=== PATIENT | female | born 1950 ===

== ENCOUNTER 2018-02-13 09:27 | Emergency (ER) | payer OTHER ==
[2018-02-13 09:40] VITALS: BP 140/83
--- NOTE | 2018-02-13 09:58 | UC ---
Back Pain HPI - HPI Summary HPI Summary: 67 yo female presents with 2 weeks of hot/cold chills and feelings of increased shortness of breath intermittently. She tells me that she has a hx of thyroid issues and wonders if this is "acting up". This was last checked in Oct 2017 and was "fine" per pt. She is visiting from [place] and did fly from [place] to [place] on 01/28 and her symptoms started after arriving. She says that in [place] she was sometimes short of breath, but here it seems more noticeable - she attributes this to staying in a 4 story house that she is not used to. She says that she has a history of asthma, but has not been coughing lately. Mentions some mild intermittent left calf cramping and aches that began after her travel. She denies sinus symptoms, sore throat, cough, chest pain, abdominal pain, n/v/d /c, or dysuria. - History of Current Complaint Chief Complaint: UCBackPain Stated Complaint: BACK PAIN,DIARRHEA Time Seen by Provider: 02/13/18 09:58 Hx Obtained From: Patient Timing: Intermittent Severity Initially: Mild Severity Currently: Mild Pain Intensity: 2 Pain Scale Used: 0-10 Numeric - Allergies/Home Medications Allergies/Adverse Reactions: Allergies Allergy/AdvReac Type Severity Reaction Status Date / Time erythromycin base Allergy Nausea Verified 02/13/18 09:41 Home Medications: Home Medications Levothyroxine TAB* [Synthroid 100 MCG TAB*] 100 mg PO DAILY 02/13/18 [History Confirmed 02/13/18] Simvastatin 20 mg PO DAILY 02/13/18 [History Confirmed 02/13/18] amLODIPine TAB* [Norvasc 5 mg TAB*] 5 mg PO DAILY 02/13/18 [History Confirmed ] PMH/Surg Hx/FS Hx/Imm Hx Endocrine History: Hypothyroidism, Dyslipidemia Cardiovascular History: Hypertension - Surgical History Surgical History: Yes Surgery Procedure, Year, and Place: bladder sling,herniated disc ,ovary x 1 - Family History Known Family History: Positive: None - Social History Lives: With Family Alcohol Use: Occasionally Substance Use Type: None Smoking Status (MU): Never Smoked Tobacco Review of Systems All Other Systems Reviewed And Are Negative: Yes Constitutional: Positive: Other - feeling warm/cold Skin: Positive: Negative Eyes: Positive: Negative ENT: Positive: Negative Respiratory: Positive: Shortness Of Breath Cardiovascular: Positive: Negative Gastrointestinal: Positive: Negative Genitourinary: Positive: Negative Motor: Positive: Negative Neurovascular: Positive: Negative Musculoskeletal: Positive: Other: - left calf cramping Neurological: Positive: Negative Psychological: Positive: Negative Physical Exam - Summary Physical Exam Summary: GENERAL: NAD. WDWN. No pain distress. SKIN: No rashes, sores, lesions, or open wounds. HEENT: Head: AT/NC Eyes: EOM intact. Conjunctiva clear without inflammation or discharge. Ears: Hearing grossly normal. TMs intact, no bulging, erythema, or edema. Nose: Nasal mucosa pink and moist. NTTP maxillary and frontal sinus. Throat: Posterior oropharynx without exudates, erythema, or tonsillar enlargement. Uvula midline. NECK: Supple. Nontender. No lymphadenopathy. CHEST: CTAB. No r/r/w. No accessory muscle use. Breathing comfortably and in no distress. CV: RRR. Without m/r/g. Pulses intact. Cap refill <2seconds. TP and DP 2+ b/l. ABDOMEN: Soft. NTTP. No distention or guarding. No CVA tenderness. Bowel sounds present MSK: Left calf NTTP. Neg christina sign. No palpable cord. NEURO: Alert. PSYCH: Age appropriate behavior. Triage Information Reviewed: Yes Vital Signs: Initial Vital Signs Temp 97.8 F 02/13/18 09:36 Pulse 80 02/13/18 09:36 Resp 17 02/13/18 09:36 BP 140/83 02/13/18 09:36 Pulse Ox 98 02/13/18 09:36 Laboratory Tests 02/13/18 11:10 POC Urine Color Yellow POC Urine Clarity Clear POC Urine pH 5.5 POC Ur Specif [place] 1.010 POC Urine Protein Negative POC Ur Glucose (UA) Negative POC Urine Ketones Negative POC Urine Blood Negative POC Urine Nitrite Negative POC Urine Bilirubin Negative POC Urine Urobilinogen 0.2 POC U Leukocyte Esteras Negative Vital Signs Reviewed: Yes Back Pain Course/Dx - Course Course Of Treatment: EKbpm NSR. No ST elevation as read by Dr. Hagan. UA negative. CXR: IMPRESSION: NO ACTIVE CARDIOPULMONARY DISEASE. Discussed with pt obtaining a left lower leg US r/o DVT today, but she declined and said "I don 't think it's a blood clot". Explained the risks of having a DVT/PE to pt and she continued to decline and thinks it is her thyroid "acting up". Will draw for CBC, BMP, and TSH and call with results. Strongly advised to go to the ED if she becomes short of breath or if her symptoms worsen. She voiced understanding. - Differential Dx/Diagnosis Provider Diagnosis: Chills (without fever), Fatigue Discharge - Sign-Out/Discharge Documenting (check all that apply): Patient Departure All imaging exams completed and their final reports reviewed: Yes - Discharge Plan Condition: Stable Disposition: HOME Patient Education Materials: Fatigue (ED) Referrals: No Primary Care Phys,NOPCP [Primary Care Provider] - Additional Instructions: If you develop a fever, shortness of breath, chest pain, new or worsening symptoms - please call your PCP or go to the ED. Your blood pressure was high at todays visit. Please see your primary provider within 4 weeks for recheck and re-evaluation. We have drawn for some labwork today and should have results in 2-3 days. - Billing Disposition and Condition Condition: STABLE Disposition: Home
[2018-02-13 16:19] LABS: ABS Basophils 0 10^3/ul (0-0.2); ABS Eosinophils 0.1 10^3/ul (0-0.6); ABS Lymphocytes 1.8 10^3/ul (1.0-4.8); ABS Monocytes 0.6 10^3/ul (0-0.8); ABS Neutrophils 2.1 10^3/ul (1.5-7.7); ABS Nucleated RBC 0 10^3/ul; Eosinophil % 1.4 %; Hematocrit 39 % (35-47); Hemoglobin 13.3 g/dl (12.0-16.0); Lymphocyte % 38.5 %; Mean Corpuscular HGB Conc 34 g/dl (31-36); Mean Corpuscular Hemoglobin 32 pg (27-31); Mean Corpuscular Volume 93 fL (80-97); Nucleated Red Blood Cells % 0.1; Platelet Count 248 10^3/ul (150-450); Red Blood Count 4.22 10^6/ul (4.00-5.40); Red Cell Distribution Width 14 % (10.5-15); White Blood Count 4.6 10^3/ul (3.5-10.8)
[2018-02-13 16:20] LABS: Calcium 9.9 mg/dL (8.6-10.3); Potassium 4.3 mmol/L (3.5-5.0)
[2018-02-13 16:26] LABS: BUN/Creatinine Ratio 17.8 (8-20); EGFR Non-African American 62.5 (>60)
[2018-02-13 16:39] LABS: TSH (Thyroid Stimulating Horm) 0.75 mcIU/mL (0.34-5.60)
--- NOTE | 2018-02-14 07:10 | UC ---
- Progress Note Progress Note: cbc. cmp, tsh reviewed normal no change isaiah 02/14/18 Course/Dx - Diagnoses Provider Diagnoses: Chills (without fever), Fatigue Discharge - Sign-Out/Discharge Documenting (check all that apply): Post-Discharge Follow Up All imaging exams completed and their final reports reviewed: Yes - Discharge Plan Condition: Stable Disposition: HOME Patient Education Materials: Fatigue (ED) Referrals: No Primary Care Phys,NOPCP [Primary Care Provider] - Additional Instructions: If you develop a fever, shortness of breath, chest pain, new or worsening symptoms - please call your PCP or go to the ED. Your blood pressure was high at todays visit. Please see your primary provider within 4 weeks for recheck and re-evaluation. We have drawn for some labwork today and should have results in 2-3 days. - Billing Disposition and Condition Condition: STABLE Disposition: Home
== END 2018-02-13 12:02 | disposition home or self-care (01) ==
LOC: UCEAST 09:27
DX: R68.83 Chills (without fever) (principal); R53.83 Other fatigue; M54.9 Dorsalgia, unspecified; I10 Essential (primary) hypertension; E03.9 Hypothyroidism, unspecified; E78.5 Hyperlipidemia, unspecified; Z88.1 Allergy status to other antibiotic agents
CPT/HCPCS: 36415; 71046; 80048; 81003; 84443; 85025; 93005; 99201; G0463